=== PATIENT | female | born 1970 | race Caucasian/White ===

== ENCOUNTER 2017-05-08 18:08 | Emergency (ER) | payer BC ==
[2017-05-08] MEDS ORDERED: DUONEB 0.5 MG/3 MG NEB ONE (18:32)
[2017-05-08 18:35] VITALS: BMI 24.3
[2017-05-08] MEDS ORDERED: DUONEB 0.5 MG/3 MG ONE ×2 (18:36→19:54)
[2017-05-08 18:56] LABS: BASOPHILS % (AUTO) 0.3 % (0.2-1.0); EOSINOPHILS % (AUTO) 0.1 % (0.9-2.9); HEMATOCRIT 48.8 % (36.0-47.0); HEMOGLOBIN 16.6 g/dL (12.0-16.0); LYMPHOCYTES # (AUTO) 0.8 X10^3/uL (1.3-2.9); LYMPHOCYTES % (AUTO) 8.5 % (21.0-51.0); MEAN CORPUSCULAR HEMOGLOBIN 34.9 pg (27.0-34.0); MEAN CORPUSCULAR VOLUME 102.5 fL (80.0-100.0); MONOCYTES # (AUTO) 0.7 x10^3/uL (0.3-0.8); MONOCYTES % (AUTO) 6.6 % (0.0-13.0); NEUTROPHILS # (AUTO) 8.4 x10^3/uL (2.2-4.8); NEUTROPHILS % (AUTO) 84.5 % (42.0-75.0); PLATELET COUNT 190 X10^3/uL (150.0-450.0); RED BLOOD COUNT 4.76 X10^6/uL (3.5-5.4); RED CELL DISTRIBUTION WIDTH 15.9 % (11.6-16.5); WHITE BLOOD COUNT 9.9 X10^3/uL (3.6-10.0)
[2017-05-08 18:56] LABS: ABG BASE EXCESS 5.3 mmol/L (-2.0-2.0)
[2017-05-08 18:57] LABS: ABG ALLEN TEST POS; ABG HCO3 30.5 mmol/L (22-26)
[2017-05-08] MEDS ORDERED: SOLU-Medrol 125 MG VIAL IVP ONE (18:59)
[2017-05-08] MEDS ORDERED: SOLU-Medrol 125 MG VIAL ONE (19:00)
--- NOTE | 2017-05-08 19:02 | RAD ---
Chest AP portable Indication: Cough, dyspnea. Findings: There is no pneumothorax, effusion or consolidation. Old right proximal humerus deformity n oted. Heart size is normal. Lungs appear mildly hyperinflated. Mild increased interstitial markings n oted. Impression: Findings suggest COPD without other acute abnormality. Mild interstitial lung disease/bro nchitis possible. Follow-up with PA and lateral chest as needed. Reported By:
[2017-05-08 19:03] LABS: ALANINE AMINOTRANSFERASE 44 Units/L (12-78); ALBUMIN 3.9 g/dL (3.4-5.0); ALKALINE PHOSPHATASE 88 Units/L (46-116); ASPARTATE AMINO TRANSFERASE 29 Units/L (15-37); BLOOD UREA NITROGEN 10 mg/dL (7-18); CALCIUM 8.7 mg/dL (8.5-10.1); CARBON DIOXIDE 30.9 mmol/L (21-32); CHLORIDE 99 mmol/L (98-107); CREATININE 1.01 mg/dL (0.55-1.02); SODIUM 138 mmol/L (136-145); TOTAL PROTEIN 8.1 g/dL (6.4-8.2); eGFR BLACK RACES > 60 (>60); eGFR NON BLACK RACES > 60 (>60)
[2017-05-08] MEDS ORDERED: NS 1/2 1000 ML IV 1,000 ML IV ONE (19:05)
--- NOTE | 2017-05-08 19:07 | DR.SOBA ---
HPI - Time Seen Time seen: 18:45 - Primary Care Physician Primary Care Physician: CHINO - Complaints Chief Complaint Doctors Comments: Patient presents with complaint of dyspnea. She has a history of COPD uses albuterol daily. Smokes one pack per day. Denies fever or productive cough. No recent hospitalizations. Chief Complaint:: PT. C/O COUGH, SHORTNESS OF BREATH, HEADACHE, N/V/D, UNABLE TO EAT AND DRINK X 3 DAYS. - Source History Provided: Patient - Mode of Arrival Mode of Arrival: Ambulatory - Timing Onset of Chief Complaint: 05/05/17 PMH - PMH Past Medical History: Yes Past Medical History: Anxiety, COPD, Hypertension Past Surgical History: Yes Surgical History: Tonsillectomy, Other Past Surgical History Comment: CYST REMOVAL - Family History History of Family Medical Conditions: No - Social History Does patient currently use any type of tobacco product: Yes Have you used tobacco products in the last 12 months: Yes Type of Tobacco Use: Cigarettes Does any household member use tobacco: No Alcohol Use: Occasionally Do you use any recreational Drugs:: No Lives With: Family Lives Where: Home - infectious screening In the last 2 months have you had wt loss of >10#?: NO Have you had fever, night sweats or hemotysis?: No Have you traveled outside the country in the last 6 months?: No Isolation: Standard ROS - Review of Systems Eyes: No Symptoms Reported ENTM: No Symptoms Reported Respiratoy: No Symptoms Reported Cardiovascular: No Symptoms Reported Gastrointestinal/Abdominal: No Symptoms Reported Genitourinary: No Symptoms Reported Neurological: No Symptoms Reported Musculoskeletal: No Symptoms Reported Integumentary: No Symptoms Reported Hematologic/Lymphatic: No Symptoms Reported Endocrine: No Symptoms Reported Psychiatric: No Symptoms Reported All Other Systems: Reviewed and Negative PE - Vital Signs Vitals: Temperature 98.7 F Pulse Rate [Left Brachial] 102 Pulse Rate 101 Respiratory Rate 24 Blood Pressure [Left Arm] 130/80 Blood Pressure 122/72 O2 Sat by Pulse Oximetry 91 - General General Appearance: Alert, In No Apparent Distress - Head Head Exam: Normal Inspection, Atraumatic - Eyes Eye exam: Normal Appearance, PERRL, EOMI - ENT ENT Exam: Normal Exam - Neck Neck Exam: Normal Inspection, Full ROM - Chest Chest Inspection: Normal Inspection, Symmetric Chest Wall Rise - Respiratory Respiratory Exam: Normal Lung Sounds Bilat Respiratory Exam: Bilateral Clear to Auscultation - Cardiovascular Cardiovascular Exam: Regular Rate - Abdominal Exam Abdominal Exam: Normal Inspection, Normal Bowel Sounds Abdominal Tenderness: negative: RUQ, RLQ, LUQ, LLQ, Epigastrium, Suprapubic, Diffuse, Mild, Moderate, Severe, Other - Extremities Extremities Exam: Normal Inspection, Full ROM - Back Back Exam: Normal Inspection - Neurologic Neurological Exam: Alert, Oriented X3, CN II-XII Intact - Psychiatric Psychiatric Exam: Normal Affect, Normal Mood - Skin Skin Exam: Warm, Dry, Intact Course - Treatment Treatment: see orders - Reevaluation 1st: Improved ROR - Labs Reviewed Laboratory Results Reviewed?: Yes Result Diagrams: 05/08/17 18:40 05/08/17 18:40 Laboratory: WBC 9.9 X10^3/uL (3.6-10.0) 05/08/17 18:40 RBC 4.76 X10^6/uL (3.5-5.4) 05/08/17 18:40 Hgb 16.6 g/dL (12.0-16.0) H 05/08/17 18:40 Hct 48.8 % (36.0-47.0) H 05/08/17 18:40 MCV 102.5 fL (80.0-100.0) H 05/08/17 18:40 MCH 34.9 pg (27.0-34.0) H 05/08/17 18:40 MCHC 34.0 g/dL (33.0-35.0) 05/08/17 18:40 RDW 15.9 % (11.6-16.5) 05/08/17 18:40 Plt Count 190 X10^3/uL (150.0-450.0) 05/08/17 18:40 MPV 8.0 fL (7.4-11.0) 05/08/17 18:40 Neut % (Auto) 84.5 % (42.0-75.0) H 05/08/17 18:40 Lymph % (Auto) 8.5 % (21.0-51.0) L 05/08/17 18:40 [place] % (Auto) 6.6 % (0.0-13.0) 05/08/17 18:40 Eos % (Auto) 0.1 % (0.9-2.9) L 05/08/17 18:40 Baso % (Auto) 0.3 % (0.2-1.0) 05/08/17 18:40 Neut # (Auto) 8.4 x10^3/uL (2.2-4.8) H 05/08/17 18:40 Lymph # (Auto) 0.8 X10^3/uL (1.3-2.9) L 05/08/17 18:40 [place] # (Auto) 0.7 x10^3/uL (0.3-0.8) 05/08/17 18:40 Eos # (Auto) 0.0 x10^3/uL (0.0-0.2) 05/08/17 18:40 Baso # (Auto) 0.0 X10^3/uL (0.0-0.1) 05/08/17 18:40 Absolute Nucleated RBC 0.0 /100WBC 05/08/17 18:40 Sample Site Lr 05/08/17 18:31 ABG pH 7.430 (7.35-7.45) 05/08/17 18:31 ABG pCO2 46.0 mmHg (35.0-45.0) H 05/08/17 18:31 ABG pO2 59.0 mmHg (80.0-100.0) L 05/08/17 18:31 ABG HCO3 30.5 mmol/L (22-26) H* 05/08/17 18:31 ABG O2 Saturation 91.0 % (90-100) 05/08/17 18:31 ABG Base Excess 5.3 mmol/L (-2.0-2.0) H 05/08/17 18:31 [place] Test Pos 05/08/17 18:31 A-a Gradient 112.0 mmHg 05/08/17 18:31 FiO2 32.000 05/08/17 18:31 Blood Gas Comments [place] well lj 05/08/17 18:31 Sodium 138 mmol/L (136-145) 05/08/17 18:40 Corrected Sodium TNP 05/08/17 18:40 Potassium 4.8 mmol/L (3.5-5.1) 05/08/17 18:40 Chloride 99 mmol/L (98-107) 05/08/17 18:40 Carbon Dioxide 30.9 mmol/L (21-32) 05/08/17 18:40 BUN 10 mg/dL (7-18) 05/08/17 18:40 Creatinine 1.01 mg/dL (0.55-1.02) 05/08/17 18:40 Est GFR (MDRD) Af Amer > 60 (>60) 05/08/17 18:40 Est GFR (MDRD) Non-Af > 60 (>60) 05/08/17 18:40 Glucose 104 mg/dL (65-99) H 05/08/17 18:40 Calcium 8.7 mg/dL (8.5-10.1) 05/08/17 18:40 Corrected Calcium TNP 05/08/17 18:40 Total Bilirubin 0.40 mg/dL (0.2-1.0) 05/08/17 18:40 AST 29 Units/L (15-37) 05/08/17 18:40 ALT 44 Units/L (12-78) 05/08/17 18:40 Alkaline Phosphatase 88 Units/L (46-116) 05/08/17 18:40 Total Protein 8.1 g/dL (6.4-8.2) 05/08/17 18:40 Albumin 3.9 g/dL (3.4-5.0) 05/08/17 18:40 Globulin 4.2 g/dL (2.5-4.5) 05/08/17 18:40 Albumin/Globulin Ratio 0.9 Ratio (1.1-2.1) L 05/08/17 18:40 - XRAY XRAY Interpreted by: Radiologist (Chest: There is no pneumothorax, effusion or consolidation. Old right proximal humerus deformity noted. Heart size is normal. Lungs appear mildly hyperinflated. Mild increased interstitial markings noted. Impression: COPD without other acute abnormality. Mild interstitial lung disease/bronchitis possible. Follow up with PA and lateral chest as needed.) - Diagnosis Discharge Problem: COPD (chronic obstructive pulmonary disease) Qualifiers: COPD type: COPD with acute exacerbation Qualified Code(s): J44.1 - Chronic obstructive pulmonary disease with (acute) exacerbation - Discharge Plan Condition: Stable - Follow ups/Referrals Follow ups/Referrals: MAYUR MAGANA [Primary Care Provider] - 3 days - Instructions
[2017-05-08] MEDS ORDERED: ZOFRAN INJ 4 MG VIAL IVP ONE (19:27)
[2017-05-08] MEDS ORDERED: ZOFRAN INJ 4 MG VIAL ONE (19:28)
[2017-05-08] MEDS ORDERED: DUONEB 0.5 MG/3 MG NEB SCH (19:45)
[2017-05-08] MEDS ORDERED: NS 1/2 1000 ML IV 1,000 ML IV SCH (20:00)
[2017-05-08 20:49] VITALS: BP 110/61
== END 2017-05-08 21:00 | disposition home or self-care (01) ==
LOC: ER 18:24
DX: J44.1 Chronic obstructive pulmonary disease with (acute) exacerbation (principal)
CPT/HCPCS: 36415; 36600; 71045; 80053; 82803; 85025; 94640; 96365; 96367; 96374; 96375; 99283; A4222; J2405; J2930; J7620